=== PATIENT | female | born 1990 | race Caucasian/White ===

== ENCOUNTER 2023-04-12 09:48 | Inpatient (IN) | payer OTHER ==
[~2023-04-12] VITALS: Ht 175.3 cm; Wt 3.2 kg
[~2023-04-12 09:48] MED LIST: ANTICONCEPTIVOS
[2023-04-24] MEDS ORDERED: PRENATAL TABLE1 EAC1 PO (14:23)
== END 2023-04-28 13:47 | disposition home or self-care (01) | DRG 788 ==
LOC: LDR 04-24 13:28 → OB/GYN 04-25 20:50 → LDR 04-29 09:15
PROVIDERS: Obstetrics & Gynecology Gynecology; ADMIT Obstetrics & Gynecology; ATTEND Obstetrics & Gynecology
PROC: 3E0P7VZ Introduction of Hormone into Female Reproductive, Via Natural or Artificial Opening (ICD-10-PCS; 2023-04-24)
PROC: 4A1HXCZ Monitoring of Products of Conception, Cardiac Rate, External Approach (ICD-10-PCS; 2023-04-24)
PROC: 3E033VJ Introduction of Other Hormone into Peripheral Vein, Percutaneous Approach (ICD-10-PCS; 2023-04-25)
PROC: 10D00Z1 Extraction of Products of Conception, Low, Open Approach (ICD-10-PCS; principal; 2023-04-25 18:30)
DX: O62.1 Secondary uterine inertia (principal); Z3A.39 39 weeks gestation of pregnancy; Z37.0 Single live birth; Z20.822 Contact with and (suspected) exposure to COVID-19

== ENCOUNTER 2023-04-19 11:28 | Outpatient (CLI) | payer OTHER | END 2023-04-19 12:13 | disposition home or self-care (01) | LOC: NST 11:28 | PROVIDERS: ATTEND Obstetrics & Gynecology | DX: Z34.83 Encounter for supervision of other normal pregnancy, third trimester (principal) ==

== ENCOUNTER 2024-03-07 17:05 | Emergency (ER) | payer OTHER ==
[~2024-03-07] VITALS: Ht 175.3 cm; Wt 79.8 kg
[~2024-03-07 17:05] MED LIST changes: +PRENATAL TABLE1 EAC1 PO
[2024-03-07] MEDS ORDERED: FAMOTIDINE/PF 20 MG in 0.9 % SODIUM CHLORIDE 8 ML IV PUSH STA (17:49)
[2024-03-07] MEDS ORDERED: KETOROLAC TROMETHAMINE 30 MG VIAL ONE (17:56)
[2024-03-07] MEDS ORDERED: ONDANSETRON HCL 2 MG/ML VIAL ONE (17:56)
[2024-03-07] MEDS ORDERED: FAMOtidine 200mg/20ml VIAL ONE (17:57)
[2024-03-07] MEDS ORDERED: KETOROLAC TROMETHAMINE 30 MG VIAL IV ONE (18:00)
[2024-03-07] MEDS ORDERED: ONDANSETRON HCL 2 MG/ML VIAL IV ONE (18:00)
[2024-03-07] MEDS ORDERED: 0.9 % SODIUM CHLORIDE 1,000 ML IV SCH (18:00)
[2024-03-07 18:34] LABS: HEMATOCRIT 50.2 % (36.0-45.00); HEMOGLOBIN 17.4 g/dL (12.0-15.00); MEAN CELL VOLUME 86.5 fL (80.00-100.00); MEAN CORPUSCULAR HGB CONC 34.7 g/dl (32.0-36.0); PLATELET COUNT 267 K/uL (150-450); RED CELL DISTRIBUTION WIDTH 13.3 % (11.5-14.5)
[2024-03-07 19:01] LABS: ALBUMIN 4.9 gm/dL (3.4-5.0); BILIRUBIN TOTAL 1.12 mg/dL (0.3-1.2); CALCIUM 10.3 mg/dL (8.5-10.1); CREATININE SERUM 0.91 mg/dL (0.55-1.02); GFR 71.64; POTASSIUM 4.43 mEq/L (3.5-5.1); TOTAL PROTEIN 8.9 gm/dL (6.4-8.2)
[2024-03-07] MEDS ORDERED: METRONIDAZOLE/SODIUM CHLORIDE 500 MG/100 ML PIGGYBACK IV ONE ×2 (19:15→19:32)
[2024-03-07] MEDS ORDERED: ZOFRAN8 MG PO (20:32)
[2024-03-07] MEDS ORDERED: METRONIDAZOLE500 MG PO (20:32)
[2024-03-07] MEDS ORDERED: PEPCID AC20 MG PO (20:32)
== END 2024-03-07 21:24 | disposition home or self-care (01) ==
LOC: ER 17:06
PROVIDERS: General Practice
DX: K52.89 Other specified noninfective gastroenteritis and colitis (principal); R11.2 Nausea with vomiting, unspecified